=== PATIENT | male | born 1935 | race Caucasian/White ===

== ENCOUNTER 2017-04-03 11:26 | Inpatient (IN) | payer OTHER ==
[~2017-04-03] VITALS: Ht 188 cm; Wt 83.9 kg
--- NOTE | ~2017-04-03 | EKG ---
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: MZOOK : 1935 Requested By: Misael Tidwell Order Number: [id number] MD: Gary Miller Measurements Intervals [place] Rate: 85 P: 37 TX: 248 QRS: -13 QRSD: 172 T: -25 QT: 413 QTc: 492 Interpretive Statements Sinus rhythm Multiform ventricular premature complexes Prolonged TX interval Right bundle branch block Baseline wander in lead(s) V6 Compared to ECG 11/14/2008 09:38:15 First degree AV block now present Electronically Signed On 04-04-2017 11:27:23 CDT by Gary Miller [email or web address] <ELECTRONICALLY SIGNED> By: Gary Miller MD, [facility] 04/04/17 1127 1204 1204 Gary Miller MD, [facility] /EPI
--- NOTE | ~2017-04-03 | O ---
[facility] [place] [address] OPERATIVE REPORT Name: PETER BELTRÁN Room #: 430-P [facility] IN M.R.#: [id number] Admission: 04/06/17 Attend Phys: Luis Hagan DO Discharge: 04/08/17 Date of : 35 Report #: [id number] THIS REPORT FOR: //name// CC: Luis Pugh MD DATE OF SERVICE: 04/07/2017 OPERATIVE ROOM: #4. SURGEON: Kalpesh Lewis MD TREE CUTTER: None. PREOPERATIVE DIAGNOSES: Bilateral ureteral stones and right renal calculus. POSTOPERATIVE DIAGNOSES: Bilateral ureteral stones and right renal calculus. ESTIMATED BLOOD LOSS: None. COMPLICATIONS: None. PROCEDURE: Cystoscopy, right ureteroscopy with balloon dilation of the ureteral orifice, laser lithotripsy, basket stone extraction, and right 6 x 30 double-J ureteral stent placement, left ureteroscopy with balloon dilation of ureteral orifice, laser lithotripsy and left 4.5 x 28 double-J ureteral stent placement. DESCRIPTION OF PROCEDURE: The patient taken to the operating room, general anesthesia was induced. The patient was prepped and draped in the usual sterile fashion in dorsal lithotomy position. The meatus was entered with a rigid cystoscope. Anterior urethra was normal. The sphincter was normal. The prostatic urethra was entered and this showed evidence of previous TUR. The bladder neck was narrowed, but able to accommodate the 22-Turkmen cystoscope. I then entered into the bladder. The right ureteral orifice appeared to be drawn into the bladder neck and was narrowed down, likely from the previous transurethral resection. The left ureteral orifice was orthotopic. The bladder mucosa was systematically examined. This was completely normal. I then cannulated the right ureteral orifice with a 0.035 sensor wire. This was advanced past the radiopaque stone seen in the mid ureter. The ureteral orifice was way too tight to accommodate the ureteroscope. I therefore balloon dilated this with an 18-Turkmen x 4 cm UroMax balloon. I then performed a semi-rigid ureteroscopy. The stone was visualized. It was fragmented with a 365 micron fiber holmium laser. All pieces were basketed and removed. I examined the [facility] [address] [place] [address] OPERATIVE REPORT Name: PETER BELTRÁN Room #: 430-P [facility] IN ..#: [id number] Admission: 04/06/17 Attend Phys: Luis Hagan DO Discharge: 04/08/17 Date of : 35 Report #: [id number] the way up to the ureteropelvic junction and all significant stone fragments were removed. The ureteroscope was withdrawn. I then replaced the cystoscope and a 6 x 30 double-J ureteral stent was advanced over the wire. It was removed and the stent was deployed. Excellent curl was seen proximally and distally. I then cannulated the left ureteral orifice with a 0.035 sensor wire. There was a massive stone seen in the proximal ureter. I was able to negotiate the wire past the stone. The right stone proceeded quite quickly; I therefore decided to start to debulk the massive left stone. I then balloon dilated the left ureteral orifice in a similar fashion. I then performed a left semirigid ureteroscopy. The very large stone was visualized in the proximal ureter. I then began to fragment this with a 365 micron fiber with holmium laser. I was able to remove approximately 1/2 to 2/3rd of all of the stone. At this point in time; however, given his age, I wish to avoid a prolonged anesthetic and potential complications of such. I felt the safest thing at this point in time is to abort this procedure and to come back at another time to further address the rest of the stone. I then withdrew the ureteroscope. I then replaced the cystoscope and a 4.5 x 28 double-J ureteral stent was advanced over the wire. The dangle was removed and stent was deployed. Excellent curl was seen proximally and distally. The cystoscope was withdrawn. The patient tolerated the procedure well. He was transferred to recovery in satisfactory condition. There were no immediate complications. <ELECTRONICALLY SIGNED> By: Kalpesh Lewis MD 04/14/17 0741 2300 0028 Kalpesh Lewis MD /nt
[2017-04-03 11:26] VITALS: BP 162/93
[~2017-04-03 11:26] MED LIST: FLOMAX0.4 MG PO; LOPRESSOR50 PO; NORCO 5-325 TA1 EACH PO; SIMVASTATIN40 MG PO
[2017-04-03] MEDS ORDERED: RESTORIL30 MG PO (12:10)
[2017-04-03 12:41] LABS: HEMATOCRIT 53.7 % (42.0-52.0); HEMOGLOBIN 17.9 gm/dL (14.0-18.0); MCH 32.2 pg (26.0-34.0); MCHC 33.2 g/dL (28.0-37.0); MCV 96.8 fL (80.0-100.0); RBC 5.55 mil/uL (4.50-6.00); RDW 13.5 % (10.5-14.5); WBC 9.2 thou/uL (4.0-11.0)
[2017-04-03 12:52] LABS: MANUAL DIFF YES
[2017-04-03 13:04] LABS: ALBUMIN 4.6 g/dL (3.4-5.0); ALKALINE PHOSPHATASE 106 U/L (46-116); ANION GAP 15 mmol/L (7-16); BUN 24 mg/dL (7-18); CALCIUM 9.3 mg/dL (8.5-10.1); CHLORIDE 103 mmol/L (98-107); CO2 22 mmol/L (21-32); CREATININE 1.7 mg/dL (0.7-1.3); GLUCOSE 164 mg/dL (74-106); POTASSIUM 4.3 mmol/L (3.5-5.1); SGOT 29 U/L (15-37); SGPT 37 U/L (30-65); SODIUM 140 mmol/L (136-145); TOTAL BILIRUBIN 1.6 mg/dL (<0.1-1.0); TOTAL PROTEIN 7.4 g/dL (6.4-8.2); TROPONIN-I < 0.04 ng/mL (<0.04-0.07)
[2017-04-03 13:09] LABS: URINE BILIRUBIN NEGATIVE (Negative); URINE BLOOD 1+ (Negative); URINE COLOR YELLOW; URINE GLUCOSE-RANDOM* NEGATIVE (Negative); URINE KETONES TRACE (Negative); URINE LEUKOCYTES-REFLEX TRACE (Negative); URINE PROTEIN (DIPSTICK) 1+ (Negative); URINE SPECIFIC GRAVITY 1.025 (1.003-1.035); URINE UROBILINOGEN 0.2 E.U./dl (0.2-1.0)
[2017-04-03 13:18] LABS: FINE GRANULAR CASTS 0-3 Few /LPF (None Seen); HYALINE CASTS 0-3 Few /LPF (None Seen); SQUAMOUS 4-10 Moderate /LPF (0-3)
[2017-04-03 13:19] LABS: CRYSTALS None Seen /LPF (None Seen); URINE RBC 0-2 Rare /HPF (0-2); URINE WBC-REFLEX 6-15 Few /HPF (0-5)
[2017-04-03 13:32] LABS: ABSOLUTE NEUTROPHILS 8.8 thou/uL (1.4-8.2); TOTAL CELL COUNT 100
[2017-04-03 13:33] LABS: ANISOCYTOSIS SLIGHT; PLATELET COUNT 98 thou/uL (150-400)
[2017-04-03 16:10] VITALS: BP 157/73
[2017-04-03 20:00] VITALS: BP 147/43
[2017-04-04 04:00] VITALS: BP 135/83
[2017-04-04 05:02] LABS: HEMATOCRIT 47.7 % (42.0-52.0); MCH 31.7 pg (26.0-34.0); MCHC 33.2 g/dL (28.0-37.0); MCV 95.3 fL (80.0-100.0); PLATELET COUNT 110 thou/uL (150-400); RDW 13.9 % (10.5-14.5); WBC 9.2 thou/uL (4.0-11.0)
[2017-04-04 05:13] LABS: HEMOGLOBIN 15.8 gm/dL (14.0-18.0)
[2017-04-04 05:14] LABS: MANUAL DIFF YES
[2017-04-04 05:25] LABS: CALCIUM 8.5 mg/dL (8.5-10.1); CREATININE 1.5 mg/dL (0.7-1.3); POTASSIUM 4.4 mmol/L (3.5-5.1)
[2017-04-04 08:00] VITALS: BP 153/95
[2017-04-04 08:03] LABS: ABSOLUTE NEUTROPHILS 8.3 thou/uL (1.4-8.2); ATYPICAL LYMPHS 1 %; LARGE PLATELETS OCCASIONAL; TOTAL CELL COUNT 100
[2017-04-04 14:56] VITALS: BP 165/93
[2017-04-04 17:07] LABS: PSA TOTAL 1.6 ng/mL (0.0-4.0)
[2017-04-04 20:30] VITALS: BP 178/82
[2017-04-05 04:30] VITALS: BP 174/86
[2017-04-05 05:20] LABS: ABSOLUTE NEUTROPHILS 4.5 thou/uL (1.4-8.2); BASOPHILS 0.6 % (0.0-2.0); EOSINOPHILS 2.6 % (0.0-3.0); HEMATOCRIT 44.5 % (42.0-52.0); HEMOGLOBIN 14.8 gm/dL (14.0-18.0); LYMPHOCYTES 15.3 % (24.0-44.0); MCH 32.1 pg (26.0-34.0); MCHC 33.3 g/dL (28.0-37.0); MCV 96.2 fL (80.0-100.0); MONOCYTES 9.4 % (1.0-8.0); PLATELET COUNT 96 thou/uL (150-400); POLYS 72.1 % (36.0-66.0); RBC 4.62 mil/uL (4.50-6.00); RDW 13.6 % (10.5-14.5); WBC 6.3 thou/uL (4.0-11.0)
[2017-04-05 05:23] LABS: MANUAL DIFF NO
[2017-04-05 05:34] LABS: CALCIUM 8.2 mg/dL (8.5-10.1); CREATININE 1.6 mg/dL (0.7-1.3); POTASSIUM 4.3 mmol/L (3.5-5.1)
[2017-04-05 08:00] VITALS: BP 147/72
[2017-04-05 20:09] VITALS: BP 150/79
[2017-04-06 04:00] VITALS: BP 150/63
[2017-04-06 08:12] VITALS: BP 153/67
[2017-04-06 15:00] VITALS: BP 163/76
[2017-04-06 15:13] LABS: CALCIUM 8.7 mg/dL (8.5-10.1); CREATININE 1.4 mg/dL (0.7-1.3); POTASSIUM 4.3 mmol/L (3.5-5.1)
[2017-04-06 20:30] VITALS: BP 158/74
[2017-04-06 20:42] LABS: HEMATOCRIT 46.6 % (42.0-52.0); HEMOGLOBIN 15.6 gm/dL (14.0-18.0); MCH 32.4 pg (26.0-34.0); MCHC 33.5 g/dL (28.0-37.0); MCV 96.8 fL (80.0-100.0); RBC 4.82 mil/uL (4.50-6.00); RDW 13.8 % (10.5-14.5); WBC 6.5 thou/uL (4.0-11.0)
[2017-04-07] VITALS (8 sets, daily range): BP systolic 136–175; BP diastolic 67–92
[2017-04-07 10:11] LABS: FREE PSA 0.6 ng/mL; FREE PSA RATIO 37.5 % (())
[2017-04-08 05:08] VITALS: BP 162/84
[2017-04-08 08:03] LABS: HEMATOCRIT 45.4 % (42.0-52.0); HEMOGLOBIN 15.3 gm/dL (14.0-18.0); MCH 32.1 pg (26.0-34.0); MCHC 33.6 g/dL (28.0-37.0); MCV 95.6 fL (80.0-100.0); RBC 4.75 mil/uL (4.50-6.00); RDW 13.2 % (10.5-14.5); WBC 8.7 thou/uL (4.0-11.0)
[2017-04-08 08:14] LABS: CALCIUM 8.1 mg/dL (8.5-10.1); CREATININE 1.4 mg/dL (0.7-1.3); POTASSIUM 4.1 mmol/L (3.5-5.1)
[2017-04-08] MEDS ORDERED: FLOMAX0.4 MG PO (08:28)
[2017-04-08] MEDS ORDERED: CIPRO250 M1 PO (08:43)
[2017-04-08 16:36] VITALS: BP 162/84
== END 2017-04-08 18:38 | disposition home or self-care (01) | DRG 659 ==
LOC: ER 11:26 → EROBS 15:03 → 4E 15:44
PROVIDERS: Emergency Medicine; Family Medicine; Physician Assistant
PROC: 0TC08ZZ Extirpation of Matter from Right Kidney, Via Natural or Artificial Opening Endoscopic (ICD-10-PCS; principal; 2017-04-07)
PROC: 0T788DZ Dilation of Bilateral Ureters with Intraluminal Device, Via Natural or Artificial Opening Endoscopic (ICD-10-PCS; principal; 2017-04-07)
DX: N13.2 Hydronephrosis with renal and ureteral calculous obstruction (principal); J18.9 Pneumonia, unspecified organism; N17.9 Acute kidney failure, unspecified; I10 Essential (primary) hypertension; H40.9 Unspecified glaucoma; N40.0 Benign prostatic hyperplasia without lower urinary tract symptoms; G47.00 Insomnia, unspecified; R33.9 Retention of urine, unspecified; Z79.899 Other long term (current) drug therapy
CPT/HCPCS: 10783; 50010; 50101; 50164; 50478; 51179; 51767; 51776; 56815; 62110; 62900; 70005

== ENCOUNTER 2018-11-30 14:43 | Inpatient (IN) | payer OTHER ==
[~2018-11-30] VITALS: Ht 188 cm; Wt 86.2 kg
[2018-11-30 14:43] VITALS: BP 112/82
[~2018-11-30 14:43] MED LIST changes: +CIPRO250 M1 PO; +RESTORIL30 MG PO; -SIMVASTATIN40 MG PO; +ZOCOR20 MG PO
[2018-11-30 15:17] LABS: ABSOLUTE NEUTROPHILS 7.3 thou/uL (1.4-8.2); BASOPHILS 0.5 % (0.0-2.0); EOSINOPHILS 0.7 % (0.0-3.0); HEMATOCRIT 58.9 % (42.0-52.0); HEMOGLOBIN 19.5 gm/dL (14.0-18.0); MCH 32.1 pg (26.0-34.0); MCHC 33.2 g/dL (28.0-37.0); MCV 96.6 fL (80.0-100.0); MONOCYTES 7.8 % (1.0-8.0); PLATELET COUNT 143 thou/uL (150-400); RDW 13.6 % (10.5-14.5); WBC 9.6 thou/uL (4.0-11.0)
[2018-11-30] MEDS ORDERED: ATIVAN0.5 MG PO (15:23)
[2018-11-30] MEDS ORDERED: ASPIR 8181 MG PO (15:24)
[2018-11-30] MEDS ORDERED: METOPROLOL SUCC50 MG PO (15:24)
[2018-11-30 15:26] LABS: CALCIUM 9.9 mg/dL (8.5-10.1); CREATININE 2.8 mg/dL (0.7-1.3); POTASSIUM 4.3 mmol/L (3.5-5.1)
[2018-11-30 15:32] LABS: ALBUMIN 4.4 g/dL (3.4-5.0); TOTAL BILIRUBIN 2.3 mg/dL (<0.1-1.0)
[2018-11-30 16:49] VITALS: BP 142/88
[2018-11-30 17:05] VITALS: BP 141/97
--- NOTE | 2018-11-30 17:10 | EKG ---
[address] [place] [address] ELECTROCARDIOGRAM REPORT Name: PETER BELTRÁN Lizandro Room #: 423-1 ADM IN M.R.#: [id number] Admission: 11/30/18 Attend Phys: Pao Thomas Discharge: Date of : 35 Report #: [id number] THIS REPORT FOR: //name// [facility] ED Test Date: 2018-11-30 Test Time: 15:01:44 Pat Name: PETER BELTRÁN Department: Room: [facility] Gender: M Promotions Manager: ISHA : 1935 Requested By: Misael Tidwell Order Number: [id number] MD: Gary Miller Measurements Intervals [place] Rate: 117 P: 46 MT: 167 QRS: 18 QRSD: 145 T: -44 QT: 343 QTc: 479 Interpretive Statements Sinus tachycardia Right bundle branch block Inferior infarct, age indeterminate Compared to ECG 04/03/2017 12:04:00 Ventricular premature complex(es) no longer present Electronically Signed On 11-30-2018 17:09:47 GALVANOMETER ASSEMBLER by Gary Miller [email or web address] <ELECTRONICALLY SIGNED> By: Gary Miller MD, [facility] 11/30/18 8399 1501 1501 Gary Miller MD, [facility] /EPI
[2018-11-30 17:40] VITALS: BP 145/95
--- NOTE | 2018-11-30 19:19 | NUR ---
83 YO MALE ADMITTED TO 423 FROM ER. A&OX4, IV INFUSING FLUIDS IN R FA W/O COMPS. AMBULATES WITH ASSIST X1 DUE TO WEAKNESS. HAS NAUSEA AND VOMITING. FRIEND IS AT BEDSIDE. PT ORIENTED TO ROOM/ CALLL LIGHT. ZOFRAN GIVEN FOR N/V, CONT. FLUIDS AND IVAB STARTED.
[2018-11-30 20:10] VITALS: BP 154/101
[2018-11-30 23:34] VITALS: BP 145/87
[2018-12-01 01:44] LABS: URINE BILIRUBIN NEGATIVE (Negative); URINE BLOOD NEGATIVE (Negative); URINE CLARITY CLEAR; URINE COLOR YELLOW; URINE GLUCOSE-RANDOM* NEGATIVE (Negative); URINE KETONES 1+ (Negative); URINE LEUKOCYTES-REFLEX NEGATIVE (Negative); URINE NITRITE-REFLEX NEGATIVE (Negative); URINE PROTEIN (DIPSTICK) TRACE (Negative); URINE UROBILINOGEN 0.2 E.U./dl (0.2-1.0)
[2018-12-01 05:00] VITALS: BP 138/66
[2018-12-01 05:52] LABS: ALBUMIN 3.2 g/dL (3.4-5.0); CALCIUM 8.3 mg/dL (8.5-10.1); CREATININE 2.2 mg/dL (0.7-1.3); PHOSPHORUS 3.8 mg/dL (2.5-4.9); POTASSIUM 5.1 mmol/L (3.5-5.1)
--- NOTE | 2018-12-01 06:16 | NUR ---
ASSUMED CARE AT 1900, ASSESSMENT COMPLETED. PT REPORTED NAUSEA IMPROVED SINCE RECEIVING ZOFRAN BEFORE SHIFT CHANGE. DENIED ANY PAIN OR SOB. AROUND 2200, PT REPORTED FEELING THE NEED TO URINATE BUT WAS UNABLE TO VOID; BLADDER SCAN SHOWED APPROX 600 ML URINE. OBTAINED ORDER TO STRAIGHT CATH ONE TIME; 550 ML CLEAR, REESE URINE OUT. PT HAS NOT VOIDED SINCE THEN. HS BP HIGH AT 154/101, PT REPORTED NOT TAKING HIS METOPROLOL DURING THE DAY, OBTAINED ORDER TO RESUME MED AND GAVE FIRST DOSE LAST NIGHT, WILL RESUME DAILY SCHEDULE IN AM. PT HAD NO BM OVERNIGHT, STILL NEED A SAMPLE FOR LAB CULTURES. IV FLUIDS INFUSING. NO OTHER CONCERNS, WILL CONTINUE TO MONITOR.
[2018-12-01 07:40] VITALS: BP 149/73
--- NOTE | 2018-12-01 08:38 | NUR ---
INITIAL ASSESSMENT: Pt evaluated for d/c planning needs. Reviewed chart and spoke with nurse and pt. Pt is alert and oriented. Pt lives alone in house and was independent with ADL's prior to admission to the hospital. Pt remains active in the community and is still driving. Pt states he uses no DME and has not had home health in the past. Pt said his electricity is back on. Pt plans on returning home on d/c from hospital. Will remain available to assist as needed.
--- NOTE | 2018-12-01 11:16 | NUR ---
ASSUMED CARE OF PT AT 0700. ASSESSMENT COMPLETED AND CHARTED. A&O,X4. DOES NOT APPEAR TO BE IN ANY DISTRESS, PT LYING IN BED. DENIES PAIN, N/V. LAST LOOSE STOOL OVERNIGHT. PHYSICIAN ORDERED MURPHY CATHETER INSERTION DUE TO RENTENTION AND HX BPH. MURPHY CATHETER INSERTED, NO PROBLEMS NOTED. APPROX 700ML CLEAR YELLOW URINE NOTED. PT STATED NO FEELING OF BLADDER BEING FULL. HTN NOTED, BP MEDS GIVEN ORDERED. NO OTHER CONCERNS AT THIS TIME. WILL CONTINUE TO MONITOR.
--- NOTE | 2018-12-01 13:58 | NUR ---
PT TRANSFERED TO S.S. IN STABLE CONDITION VIA WHEELCHAIR. ACHS D/C ORDERED BY PHYSICIAN, NO HX OF DIABETES. NO CHANGE IN PT CONDITION. PT BELONGINGS COLLECTED - JEANS, SHOES, JACKET, SWEATER, WALLET.
--- NOTE | 2018-12-01 19:11 | NUR ---
PATIENT TRANSFERRED FROM [facility] REPORT FROM BRADY/RN. PATIENT ALERT AND ORIENTED X 4, CAN BE FORGETFUL. PATIENT HAS RIGHT FOREARM IV WITH NS AT 125CC/HR. 1 SMALL LOOSE STOOL INCONTINENT IN BED, NEED STOOL SAMPLE. PATIENT HAS MURPHY CATHETER IN PLACE WITH ADEQUATE AMT OF YELLOW URINE. PATIENT DENIES PAIN UPON ARRIVAL TO THE UNIT. PATIENT UP WITH SBA DUE TO WEAKNESS. WILL CONTINUE TO MONITOR.
[2018-12-01 19:47] VITALS: BP 148/74
--- NOTE | 2018-12-02 06:43 | NUR ---
PATIENT AND ORIENTED X4. DENIES PAIN, N/V. UP WITH ASSIST OF ONE. MURPHY PATENT STRAW COLORED URINE WITH SOME BLOOD CLOTS. IV SITE CHANGED D/T LEAKING. INSERTED WITH ONLY ONE STICK WITH NO TROUBLE. SLEPT MOST OF NIGHT.
[2018-12-02 06:50] LABS: HEMATOCRIT 47.9 % (42.0-52.0); MCH 31.8 pg (26.0-34.0); MCHC 32.6 g/dL (28.0-37.0); MCV 97.4 fL (80.0-100.0); RBC 4.91 mil/uL (4.50-6.00); RDW 13.5 % (10.5-14.5); WBC 6.7 thou/uL (4.0-11.0)
[2018-12-02 06:52] LABS: HEMOGLOBIN 15.6 gm/dL (14.0-18.0)
[2018-12-02 07:08] LABS: ALBUMIN 3.2 g/dL (3.4-5.0); CALCIUM 8.1 mg/dL (8.5-10.1); CREATININE 1.9 mg/dL (0.7-1.3); PHOSPHORUS 2.5 mg/dL (2.5-4.9); POTASSIUM 5.1 mmol/L (3.5-5.1)
[2018-12-02 08:00] VITALS: BP 143/70
--- NOTE | 2018-12-02 08:00 | NUR ---
PATIENT CARE WAS ASSUMED AT 0715.PATIENT IS ALERT AND ORIENTED X4,CAN BE FORGETFUL AT TIMES.VITALS ARE STABLE. IV IS PATENT AND HAS FLUIDS INFUSING.PT HAS NO NAUSEA/VOMITTING.PT HAS MURPHY D/D.PT WANTS DIET CHANGE TO REGULAR DIET.WILL CONTINUE TO MONITOR.CALL LIGHT,PHONE, AND PERSONAL BELONGINGS ARE WITHIN REACH.
--- NOTE | 2018-12-02 12:07 | NUR ---
SW reviewed chart and spoke with nursing and attending physician. Pt is progressing towards goals for discharge. Discharge home is anticipated for tomorrow. SW met with pt at bedside to discuss discharge plan. Pt is aware of anticipated discharge home for tomorrow. SW discussed option for HH services at time of discharge. Pt declines HH services, stating that he will do fine at home. SW encouraged pt to contact his PCP (Dr. Pugh) for HH orders after discharge. Pt states that his friends will be able to provide transportation home. SW is following to assist as needed with discharge planning.
[2018-12-02 20:59] VITALS: BP 148/92
--- NOTE | 2018-12-03 01:29 | NUR ---
pt is alert and oriented x 4,needs one person assist with adls. denies pain continous on ivf at 80ml/hr. last bm 5 days ago,denies nausea and vomiting,armas cath patent with clear urine.on RA,personal items within reach.
[2018-12-03 07:14] LABS: CALCIUM 8.1 mg/dL (8.5-10.1); CREATININE 1.5 mg/dL (0.7-1.3); PHOSPHORUS 2.2 mg/dL (2.5-4.9)
[2018-12-03 07:19] LABS: POTASSIUM 5.5 mmol/L (3.5-5.1)
[2018-12-03 07:42] VITALS: BP 182/89
[2018-12-03] MEDS ORDERED: FLOMAX0.4 MG PO (08:54)
--- NOTE | 2018-12-03 09:44 | NUR ---
ASSSUMED CARE OF PATIENT THIS MORNING. PATIENT IS ALERT AND ORIENTED X4. UP WITH STANDBY ASSISTANCE AND WALKER. PATIENT WILL BE DISCHARGED SOMETIME LATER ON TODAY. NO ABNORMAL ASSESSMENT FINDINGS. HE HAD A MURPHY CATHETER THAT WAS JUST DISCONTINUED, 10CC REMOVED FROM BALLOON. LAST BM WAS THIS MORNING. PATIENT DOES NOT COMPLAIN OF ANY PAIN.
[2018-12-03 09:54] VITALS: BP 182/89
--- NOTE | 2018-12-03 12:22 | NUR ---
DISCHARGE NOTE: TEGAN reviewed chart and spoke with nursing and attending physician. Pt is medically stable for discharge home today. TEGAN met with pt and friend, Milena, at bedside to provide update and discuss discharge. Pt and Milena are agreeable with discharge home. SW discussed option for HH services. Pt is agreeable. Options provided for HH agencies. Pt chose [facility]. Pt's PCP is Dr. Pugh. SW confirmed pt's home address/phone number. Pt's friends have toured [facility] and are helping pt move into an ID or long term community. TEGAN updated attending physician. Awaiting final discharge orders/summary. TEGAN notified intake at [facility] of new referral. Contact info for [facility] placed in pt's discharge summary. Pt's friend at bedside will provide transportation home. No additional SW needs identified at this time, but is available to assist should needs arise.
--- NOTE | 2018-12-03 14:03 | NUR ---
PATIENT BEING DISCHARGED HOME WITH HOME HEALTH. WILL FOLLOW UP WITH PRIMARY PHYSICIAN WITHIN 1 WEEK. PATIENT BEING DISCHARGED HOME WITH 1 PRESCRIPTION. IV DC'D. VOLUNTEER TRANSPORT CAME TO GET PATIENT AND WHEEL TO MAIN ENTRANCE.
--- NOTE | 2018-12-03 14:10 | NUR ---
I AGREE WITH NURSING ASSESSMENT DONE BY RADHA/EVY.
--- NOTE | 2018-12-03 14:37 | NUR ---
I AGREE WITH NURSING ASSESSMENT DONE BY RADHA/EVY.
== END 2018-12-03 14:12 | disposition home health service (06) | DRG 871 ==
LOC: ER 14:43 → 4E 16:39 → EROBS 16:39 → SICU 16:39 → 4E 16:57 → SICU 12-01 12:57 → ENTRNSPT 12-03 13:55 → EDTRNSPTSTS 12-03 13:59 → SICU 12-03 14:12
PROVIDERS: Emergency Medicine; ADMIT Hospitalist
DX: A41.9 Sepsis, unspecified organism (principal); N17.0 Acute kidney failure with tubular necrosis; K52.9 Noninfective gastroenteritis and colitis, unspecified; T62.91XA Toxic effect of unspecified noxious substance eaten as food, accidental (unintentional), initial encounter; H40.9 Unspecified glaucoma; E86.0 Dehydration; N40.1 Benign prostatic hyperplasia with lower urinary tract symptoms; R33.8 Other retention of urine; Z60.2 Problems related to living alone; I12.9 Hypertensive chronic kidney disease with stage 1 through stage 4 chronic kidney disease, or unspecified chronic kidney disease; E78.5 Hyperlipidemia, unspecified; N18.9 Chronic kidney disease, unspecified; D75.1 Secondary polycythemia; G47.00 Insomnia, unspecified; Y92.89 Other specified places as the place of occurrence of the external cause; Z88.8 Allergy status to other drugs, medicaments and biological substances; Z79.82 Long term (current) use of aspirin; Z79.899 Other long term (current) drug therapy
CPT/HCPCS: 10084; 15002